=== PATIENT | male | born 1990 | race African-American/Black ===

== ENCOUNTER 2016-10-24 09:55 | Emergency (ER) | payer OTHER ==
[~2016-10-24] VITALS: Ht 170.2 cm; Wt 77.3 kg
[2016-10-24 09:56] VITALS: BP 120/78
[2016-10-24] MEDS ORDERED: NORCO, ANEXSIA 5/325MG TABLET (HYDROcodone/ACETAMINOPHEN) PO ONE (10:15)
--- NOTE | 2016-10-24 10:43 | REP ---
Clinical: Trauma . Technique: Axial noncontrast images from the skull base to the thoracic inlet with coronal and sagittal re-formations Findings: Normal alignment and lordosis is maintained. Cervical vertebral bodies including transverse processes and spinous processes are intact and there is no evidence for acute fracture / compression injury or subluxation. Spinal canal is patent. Posterior elements are intact. Paravertebral soft tissues are normal. Impression: Normal noncontrast cervical spine CT. No evidence for acute pathology or trauma/injury. Signed by Kang Aguilera MD 10/24/2016 10:35 A
--- NOTE | 2016-10-24 11:22 | REP ---
Clinical: Trauma. Technique: Three oblique views of the right hemithorax. Findings: Oblique views of the right hemithorax demonstrates no obvious acute rib fracture or pathology. Impression: Normal right rib series Signed by Kang Aguilera MD 10/24/2016 11:14 A
--- NOTE | 2016-10-24 11:22 | REP ---
Clinical: Trauma. Technique: AP and lateral views of the right forearm. Findings: No acute fracture dislocation. Skeletal structures, joint spaces, and surrounding soft tissues are normal. No subcutaneous emphysema or radiodense foreign body. Impression: No acute fracture dislocation. Signed by Kang Aguilera MD 10/24/2016 11:13 A
[2016-10-24] MEDS ORDERED: HYDR-3713 PO (11:27)
== END 2016-10-24 11:37 | disposition home or self-care (01) ==
LOC: M ED 09:55
DX: Z04.1 Encounter for examination and observation following transport accident (principal); S50.11XA Contusion of right forearm, initial encounter; S20.211A Contusion of right front wall of thorax, initial encounter; S16.1XXA Strain of muscle, fascia and tendon at neck level, initial encounter; V48.5XXA Car driver injured in noncollision transport accident in traffic accident, initial encounter; Y92.410 Unspecified street and highway as the place of occurrence of the external cause; Y93.89 Activity, other specified; Y99.8 Other external cause status

== ENCOUNTER 2017-12-20 16:19 | Emergency (ER) | payer OTHER | END 2017-12-20 18:28 | disposition home or self-care (01) | LOC: M ED 16:19 | DX: M94.0 Chondrocostal junction syndrome [Tietze] (principal) | CPT/HCPCS: 71046 ==

== ENCOUNTER → 2018-08-09 | Outpatient (CLI) | payer OTHER ==
[~2018-08-09] MED LIST: CONRAY-43 43% 50ML VIAL (Q9960) As Ordered ONE; CYCL10TA PO; HYDR-3713 PO; IBUP-1022 PO; PROHANCE 279.3MG/ML 5ML VIAL (A9576) As Ordered ONE
--- NOTE | 2018-08-09 10:48 | REP ---
MR ARTHROGRAM OF THE RIGHT HIP: TECHNIQUE: Coronal T1, STIR through the pelvis, post arthrogram axial T1 fat sat, T2 fat sat, coronal T1 fat sat, T2 fat sat, sagittal T1 fat sat, axial oblique T1 fat sat right hip. Visualized osseous structures demonstrate no abnormal bone marrow signal. There is no bone marrow edema or occult fracture. There is no evidence of avascular necrosis. The right hip labrum demonstrates ill-defined high signal superiorly as well as anteriorly compatible with fraying. No full thickness labral tear is seen. There is no paralabral cyst. There is a normal amount of joint fluid. The surrounding soft tissue structures demonstrate no abnormal signal. The visualized intrapelvic structures are unremarkable. IMPRESSION: Findings most consistent with fraying of the superior and anterior right hip labrum. No full thickness labral tear. No underlying osseous abnormality. Electronically Signed by Mariano Galvin MD 08/09/2018 04:20 P
--- NOTE | 2018-08-09 16:22 | REP ---
Reason For Exam/Comment: Right hip pain Procedure: Right hip MRI arthrogram The procedure was performed by APOLONIA Marie, under the direct supervision of Dr. Galvin. The benefits and risks including but not limited to pain, infection, bleeding and anaphylaxis were explained to the patient and informed consent was obtained both verbally and written. Directly prior to the start of the procedure, a formal timeout was completed in the procedure room. Technique: The right femoral neck was localized using fluoroscopic guidance. The skin was prepped and draped in the usual sterile fashion. 5 mL of 1% lidocaine was used as a local anesthetic. Using fluoroscopic guidance a 22-gauge spinal needle was inserted and advanced to the right femoral neck joint space. 1 mL of Conray 43 was injected to verify needle placement. 12 mL of a solution containing 20 ml of sterile saline and a 0.15 ml of ProHance was injected into the joint. The needle was removed and the patient was taken MRI for post procedural imaging. The patient tolerated the procedure well and there were no immediate complications. 0.1 minutes of fluoroscopy time was utilized for this procedure. Some fluoroscopic images are performed with last image hold technology. These images require no additional radiation. Reviewed by APOLONIA Jones 08/09/2018 08:29 A Electronically Signed by Mariano Galvin MD 08/09/2018 04:13 P
== END ==
LOC: M RADPRO 06:23
PROVIDERS: ATTEND Physician Assistant
DX: M24.151 Other articular cartilage disorders, right hip (principal); M25.551 Pain in right hip
CPT/HCPCS: 27093; 73723; 77002; A9576; Q9960